=== PATIENT | male | born 1950 | race Caucasian/White ===

== ENCOUNTER 2025-08-02 08:29 | Outpatient (CLI) | payer MEDICARE | END 2025-08-02 08:30 | disposition home or self-care (01) | LOC: CSHSLEEP 08:29 | PROVIDERS: ATTEND Internal Medicine Cardiovascular Disease | DX: G47.33 Obstructive sleep apnea (adult) (pediatric) (principal); R53.83 Other fatigue; I50.9 Heart failure, unspecified; I25.10 Atherosclerotic heart disease of native coronary artery without angina pectoris; R06.83 Snoring; E66.9 Obesity, unspecified; Z68.41 Body mass index [BMI] 40.0-44.9, adult; G47.31 Primary central sleep apnea | CPT/HCPCS: 95800 ==